=== PATIENT | female | born 1930 | race Caucasian/White ===

== ENCOUNTER 2017-03-30 03:19 | Inpatient (IN) | payer BC, MEDICARE ==
[2017-03-30] MEDS ORDERED: NS 0.9% 1000 ML* 1,000 ML IV ONE (03:57)
[2017-03-30] MEDS ORDERED: Ondansetron INJ* 2 MG/ML VIAL IV ONE (04:00)
[2017-03-30] MEDS ORDERED: Tobramycin 0.3% OPHTH.OINT* 3.5 GM TUBE (OPTH OINTMENT) BOTH EYES ONE (04:00)
[2017-03-30] MEDS: Morphine INJ* 2 MG/ML 1 ML CARPUJECT IV ONE ×2 (04:16→05:58)
[2017-03-30 05:24] LABS: ABS Basophils 0 10^3/ul (0-0.2); ABS Eosinophils 0.1 10^3/ul (0-0.6); ABS Lymphocytes 0.9 10^3/ul (1.0-4.8); ABS Monocytes 0.4 10^3/ul (0-0.8); ABS Nucleated RBC 0 10^3/ul; Eosinophil % 0.9 % (0-6); Hematocrit 42 % (35-47); Hemoglobin 14.2 g/dl (12.0-16.0); Lymphocyte % 9.2 % (25-47); Mean Corpuscular HGB Conc 34 g/dl (31-36); Mean Corpuscular Hemoglobin 30 pg (27-31); Mean Corpuscular Volume 90 fL (80-97); Mean Platelet Volume 9 um3 (7.4-10.4); Nucleated Red Blood Cells % 0; Platelet Count 169 10^3/ul (150-450); Red Blood Count 4.68 10^6/ul (4.0-5.4); Red Cell Distribution Width 14 % (10.5-15); White Blood Count 9.3 10^3/ul (3.5-10.8)
[2017-03-30 05:28] LABS: Urine Appearance Clear; Urine Blood Negative (Negative); Urine Color Yellow; Urine Ketones Trace (Negative); Urine Protein Negative (Negative); Urine Specific Gravity 1.015 (1.010-1.030); Urine Urobilinogen Negative (Negative)
[2017-03-30 05:33] LABS: INR 0.98 (0.77-1.02)
[2017-03-30 05:36] LABS: EGFR Non-African American 80.5 (>60)
[2017-03-30] MEDS ORDERED: Morphine INJ* 2 MG/ML 1 ML CARPUJECT ONE (05:55)
--- NOTE | 2017-03-30 07:07 | ED ---
Hossein Klein Julia, scribed for Luis Harvey MD on 03/30/17 at 0532 . Syncope/Near Syncope - HPI Summary HPI Summary: This patient is a 86 year old F BIBA to [facility] due to a fall on hard floor when walking to the bathroom at 02:00 this morning and hit her L head on the floor. Patient reports L hip pain, R shoulder pain, and LOC. Patient denies cough, neck pain, SOB, and chest pain. The patient rates the pain 5/10 in severity. Pt takes baby ASA every other day. - History Of Current Complaint Chief Complaint: EDSyncope Hx Obtained From: Patient Onset/Duration: Sudden Onset Context: Loss Of Consciousness Activity At Onset: Other - walking to bathroom Associated Head Trauma: Yes Associated Signs And Symptoms: Head Trauma (Remote), Pain - L hip and - Allergies/Home Medications Allergies/Adverse Reactions: Allergies Allergy/AdvReac Type Severity Reaction Status Date / Time No Known Allergies Allergy Verified 03/30/17 03:26 Home Medications: Home Medications C,E,Zinc,Copper 11/Gbbgx6c/Lut [Ocuvite Adult 50 Plus Softgel] 1 cap .ROUTE BID 03/30/17 [History Confirmed 03/30/17] PMH/Surg Hx/FS Hx/Imm Hx Cardiovascular History: Reports: Hx Hypotension Musculoskeletal History: Reports: Hx Orthopedic Injury EENT History: Denies: Hx Deafness Infectious Disease History: No Infectious Disease History: Denies: Traveled Outside the [place] in Last 30 Days - Social History Alcohol Use: None Substance Use Type: Reports: None Smoking Status (MU): Never Smoked Tobacco Review of Systems Positive: Myalgia - L hip, R shoulder Neurological: Other - LOC All Other Systems Reviewed And Are Negative: Yes Physical Exam - Summary Physical Exam Summary: Appearance: Well appearing, no pain distress, orange discoloration to both sides of mouth Skin: warm, dry, reflects adequate perfusion Head/face: 0.5cm L periorbital laceration with dried blood, 3cm hematoma Eyes: EOMI, LIDIA, conjunctiva injection with discharge bilaterally ENT: normal, TM intact with no hematotympania bilaterally, upper dentures, no lower dentures Neck: supple, non-tender Respiratory: CTA, breath sounds present Cardiovascular: RRR, pulses symmetrical Abdomen: non-tender, soft Bowel: present Musculoskeletal: strength/ROM intact, bilateral upper extremity FROM without pain, chronic deformity of L ankle, shortened L leg, pain at greater trochanter with rotation Neuro: normal, sensory motor intact, A&Ox3 Vital Signs On Initial Exam: Initial Vitals Temp Pulse Resp BP Pulse Ox 97.6 F 87 18 170/89 93 03/30/17 03:23 03/30/17 03:23 03/30/17 03:23 03/30/17 03:23 03/30/17 03:23 Procedures - Laceration/Wound Repair 1 Location: head Length, Depth and Shape: 1cm Closure: Keith #__ - 2 Debridement: cleaned with soap and water, tetanus shot given Diagnostics - Vital Signs Vital Signs Temp Pulse Resp BP Pulse Ox 03/30/17 05:02 17 03/30/17 05:01 143/77 03/30/17 04:16 16 03/30/17 04:00 18 168/89 03/30/17 03:34 85 91 03/30/17 03:32 156/87 03/30/17 03:23 97.6 F 87 18 170/89 93 - Laboratory Lab Results: Lab Results 03/30/17 03/30/17 Range/Units 05:00 05:00 WBC 9.3 (3.5-10.8) 10^3/ul RBC 4.68 (4.0-5.4) 10^6/ul Hgb 14.2 (12.0-16.0) g/dl Hct 42 (35-47) % MCV 90 (80-97) fL MCH 30 (27-31) pg MCHC 34 (31-36) g/dl RDW 14 (10.5-15) % Plt Count 169 (150-450) 10^3/ul MPV 9 (7.4-10.4) um3 Neut % (Auto) 85.7 H (38-83) % Lymph % (Auto) 9.2 L (25-47) % [place] % (Auto) 4.0 (1-9) % Eos % (Auto) 0.9 (0-6) % Baso % (Auto) 0.2 (0-2) % Absolute Neuts (auto) 8.0 H (1.5-7.7) 10^3/ul Absolute Lymphs (auto) 0.9 L (1.0-4.8) 10^3/ul Absolute Monos (auto) 0.4 (0-0.8) 10^3/ul Absolute Eos (auto) 0.1 (0-0.6) 10^3/ul Absolute Basos (auto) 0 (0-0.2) 10^3/ul Absolute Nucleated RBC 0 10^3/ul Nucleated RBC % 0 Urine Color Yellow Urine Appearance Clear Urine pH 7.0 (5-9) Ur Specific [place] 1.015 (1.010-1.030) Urine Protein Negative (Negative) Urine Ketones Trace H (Negative) Urine Blood Negative (Negative) Urine Nitrate Negative (Negative) Urine Bilirubin Negative (Negative) Urine Urobilinogen Negative (Negative) Ur Leukocyte Esterase Trace H (Negative) Urine WBC (Auto) 1+(6-10/hpf) H (Absent) Urine RBC (Auto) Absent (Absent) Urine Bacteria Absent (Absent) Urine Yeast Present H (Absent) Urine Glucose Negative (Negative) Urine Ascorbic Acid * H (Negative) Result Diagrams: 03/30/17 05:00 03/30/17 05:00 Lab Statement: Any lab studies that have been ordered have been reviewed, and results considered in the medical decision making process. - Radiology R Shoulder Radiology Interpretation Completed By: ED Physician - negative Pelvis Radiology Interpretation Completed By: ED Physician - dsyruption of the pubic synthesis, questionable acetabular fracture on the left, degenerative changes L Femur Radiology Interpretation Completed By: ED Physician - abnormal appearance of femoral neck questionable acetabular fracture CXR Radiology Interpretation Completed By: ED Physician - elevated R hemidiaphragm, no acute finding - CT Brain CT CT Interpretation Completed By: ED Physician - negative A/P CT Interpretation Completed By: ED Physician - abdominal hernia, anterolisthesis of L5 on S1 C-Spine CT Interpretation Completed By: ED Physician - degenerative pathology - EKG 0323 Cardiac Rate: NL - at 86 BPM EKG Rhythm: Sinus Rhythm EKG Interpretation: low volatage, poor R wave progression, flipped R waves laterally Re-Evaluation - Re-Evaluation First Eval Change: Improved - pt improves with morphine. pain in hip with maniuplation Course/Dx Course Of Treatment: Pt with syncope, no arrhythmia. Head inj with lac. Lac repaired. CT head/neck neg. L hip pain/deformity but limited pelvic xrays. Wanted with confirm with CT. CT shows min impacted fem neck fx. D/W Ortho. He will see in consult. No blood thinners. Shoulder xray neg. Pre-op labs, ECG and CXR performed. Admit thru hospitalist. Pain improved with tx. At 06:56, Dr. Lovell was informed of patient's admission. - Diagnoses Provider Diagnoses: Bilateral conjunctivitis, Head injury, closed, with brief LOC, Syncope, Fracture of femoral neck, left - Physician Notifications Discussed Care of Patient With: Evita Zepeda Time Discussed With Above Provider: 06:54 Instructed by Provider To: Admit As Inpatient - Critical Care Time Critical Care Time: 30-74 min - exclusive of seperately billable procedures Discharge - Discharge Plan Condition: Fair Disposition: ADMITTED TO [facility] The documentation as recorded by the Hossein henson Julia accurately reflects the service I personally performed and the decisions made by , Luis Harvey MD.
[2017-03-30] MEDS ORDERED: Albuterol 2.5 MG/3 ML NEB.SOL* (0.083%) INH PRN (07:36)
[2017-03-30] MEDS ORDERED: Al Hydrox/Mg Hydrox/Simet LIQ* 30 ML UDC PO PRN (07:36)
[2017-03-30] MEDS ORDERED: Acetaminophen TAB* 325 MG PO PRN (07:36)
[2017-03-30] MEDS ORDERED: Enoxaparin(*) 40 MG/0.4 ML SYR SUBCUT SCH (08:00)
--- NOTE | 2017-03-30 08:05 | RAD ---
Indication: Head injury, loss of consciousness. CT of the brain was performed without IV contrast. Ventricular structures are midline. No midline shift is noted. The extra-axial spaces are unremarkable. There is no evidence of intracranial mass or hemorrhage. No other high or low density lesions are identified. Mastoid air cells and paranasal sinuses are otherwise unremarkable. There is a scalp hematoma over the left parietal area consistent with a scalp hematoma and surgical blake. No underlying fracture is noted. IMPRESSION: There is no evidence of intracranial mass or hemorrhage present.
--- NOTE | 2017-03-30 08:06 | RAD ---
Indication: Preop hip fracture. Single view of the chest demonstrates no mediastinal shift. Elevated right hemidiaphragm is noted. Poor inspiratory effort is noted. No alveolar consolidation or pneumothorax is noted. IMPRESSION: Elevated right hemidiaphragm. Poor inspiration. No definite pneumonia is noted.
--- NOTE | 2017-03-30 08:07 | RAD ---
Indication: Left femur injury, left hip fracture. 2 views of the left femur demonstrates fracture of the neck of the left femur with impaction. No other bone or joint abnormality is noted. IMPRESSION: Impacted fracture left femoral neck.
--- NOTE | 2017-03-30 08:08 | RAD ---
Indication: Pelvic injury. Single view of the pelvis demonstrates pelvic ring to be intact. There is a fracture of the left femoral neck. IMPRESSION: Impacted fracture left femoral neck. Pelvic ring is intact.
--- NOTE | 2017-03-30 08:09 | RAD ---
Indication: Right shoulder injury. 4 views of the right shoulder demonstrates AC joint arthritis. Degenerative changes of the glenohumeral joint is noted. No fracture is identified. IMPRESSION: AC joint arthritis. No fracture of the right shoulder is noted.
--- NOTE | 2017-03-30 08:24 | RAD ---
INDICATION: Trauma. COMPARISON: There are no prior studies available for comparison. TECHNIQUE: Contiguous axial sections were obtained from the skull base through the T2 vertebra. Images were reconstructed in the sagittal and coronal planes. FINDINGS: There is mild anterolisthesis of C4 relative to C5 of approximately 2 mm which is likely degenerative in origin. No prevertebral soft tissue swelling or fracture is seen. There is moderate diffuse degenerative disc disease and facet osteoarthritis. No significant spinal canal narrowing is seen. There is moderate bilateral neural foraminal narrowing at multiple levels in the mid and lower cervical spine. There is a dominant nodule in the right thyroid lobe measuring 2.4 x 1.6 cm in size. There is minimal intralobular septal thickening. The lung apices are otherwise clear. IMPRESSION: 1. NO EVIDENCE FOR FRACTURE. 2. RIGHT THYROID LOBE NODULE RECOMMEND A FOLLOW-UP THYROID ULTRASOUND FOR FURTHER EVALUATION.
[2017-03-30] MEDS ORDERED: Magnesium Oxide TAB* 400 MG PO ONE (08:32)
[2017-03-30] MEDS ORDERED: Potassium Chlor TAB* 20 MEQ TAB.ER PO ONE (08:32)
[2017-03-30] MEDS ORDERED: Hydrochlorothiazide TAB* 25 MG PO SCH (09:00)
--- NOTE | 2017-03-30 10:29 | RAD ---
Indication: Pelvic fracture, left hip fracture. CT of the pelvis was obtained in the axial plane. Sagittal and coronal reconstructed images were obtained. The iliac crests bilaterally demonstrate no fracture. The sacrum is otherwise unremarkable. Degenerative changes of the facet joint are noted. The acetabulum demonstrates no evidence of fracture. Superior and inferior pubic rami are grossly unremarkable with osteitis of the pubic symphysis. Again noted is a minimally impacted fracture of the neck of the left femur. There is mild aneurysmal dilatation of the distal abdominal aorta just above the bifurcation measuring up to 3.0 cm x 3.4 cm. Common iliac arteries are unremarkable. There is a large left-sided inguinal hernia containing colon. Additionally, there is a small periumbilical hernia containing fat. IMPRESSION: 1. Mildly impacted fracture of the neck of the left femur. 2. The pelvic ring demonstrates no fracture. Osteitis pubis is noted. Degenerative changes of the lower lumbar spine are noted. 3. There is a large left inguinal hernia containing colon and a small periumbilical hernia containing omentum.
[2017-03-30] MEDS: Morphine INJ* 2 MG/ML 1 ML CARPUJECT IV PRN ×3 (10:30→21:15)
--- NOTE | 2017-03-30 12:20 | HP ---
CC: Dr. Lovell; Dr. Nieto * HISTORY AND PHYSICAL: DATE OF ADMISSION: 03/30/17 TIME OF ADMISSION: 8 a.m. PRIMARY CARE PHYSICIAN: [facility]. CHIEF COMPLAINT: Fall. HISTORY OF PRESENT ILLNESS: This is an 86-year-old female with history of hypertension and macular degeneration, who presents after a fall at home. She woke up at about 2 a.m. and got up to walk to the bathroom. During her walk from the bed to the bathroom, she lost consciousness and fell backwards and to the left. She hit the side of her head and her left hip and in the emergency department was found to have an impacted femoral neck fracture. So, we were called for admission. Ms. Grier reports a history of dizziness for several years and has been diagnosed with vertigo by her PCP; however, says that the dizziness has been persistent, daily, and worsening over the past few years. She has had syncope on exertion 3 times in the past few years. Last night, the episode occurred while she was walking between the bed and the bathroom and she is confident that she lost consciousness. She does not know how long she was unconscious. She does not recall any palpitations or chest pain prior to the syncope. Right now, she has pain in her left hip, but otherwise feels okay. PAST MEDICAL HISTORY: Hypertension, macular degeneration, and osteoarthritis. HOME MEDICATIONS: 1. Ocuvite b.i.d. 2. Aspirin 81 mg every other day. 3. Hydrochlorothiazide 12.5 mg daily. FAMILY HISTORY: She does not know of any medical problems that run in her family. SOCIAL HISTORY: She lives at [facility] in [place], in independent living section. Her daughter lives in [place] and comes to help her regularly. She is a former smoker and smoked for about 50 years and quit in the . She does not drink alcohol. She does report that she holds on to furniture as she walks through the house, but otherwise does not use assistive devices. REVIEW OF SYSTEMS: She denies recent illness with cough, cold, shortness of breath, sore throat, fevers or muscle aches. She denies recent diarrhea. She does report poor appetite and weight loss over the past few months. PHYSICAL EXAMINATION GENERAL: Alert, elderly female, in no distress. She is pleasant, cooperative, and oriented. VITAL SIGNS: Temp 99.1, heart rate 82, respiratory rate 18, pulse ox 97% on 2 L. blood pressure 126/59. HEENT: Pupils are 5 mm bilaterally and reactive to light. She has a 1.5 cm laceration on the left superior parietal area that has [address] She has no nystagmus. Her face is symmetrical. Her mucosa is moist, with no pharyngeal exudates or erythema. NECK: She has JVP to the angle of the mandible. She has no cervical adenopathy. CHEST: She is in a regular rate and rhythm. She has an early systolic murmur, heard best at the left upper sternal border and without radiation. Her PMI is nondisplaced. She is unable to roll on her side to listen posteriorly, but anteriorly her lungs are clear. ABDOMEN: Her abdomen has large seborrheic keratosis on it. It is soft, nontender, nondistended. EXTREMITIES: Her left leg is internally rotated and her medial malleolus is 2 cm superior to the right medial malleolus. She has pain with passive internal and external rotation of the left hip. Her sensation his distally intact. DIAGNOSTIC STUDIES/LAB DATA: White blood cell is 9.3, 86% neutrophils, hemoglobin 14.2, platelets 169. INR 0.98. Sodium 140, potassium 3.4, chloride 105, bicarb 29, BUN 21, creatinine 0.69, magnesium 1.7. Troponin 0.20. Total protein 5.7, total bili is 0.8, ALT 16, AST 18, alk phos 62. EKG: Normal sinus rhythm, with left axis deviation, normal intervals, Q waves in V2 and V3, T-wave inversions in V2 through V6. There is no EKG done in the past for comparison. Chest x-ray: Elevated right hemidiaphragm and some vascular congestion. This is my read, an official read is pending. CT pelvis shows an acute, minimally impacted subcapital fracture in the left femoral neck, with no dislocation and anterolisthesis L5 to S1 due to chronic degenerative changes versus L5 spondylolysis, with degenerative/posttraumatic changes in the pubic symphysis, with a small incidental bone island, left superior pubic ramus. CT of C-spine showed no acute fracture with multilevel spondylosis. CT head: No acute brain parenchymal abnormality. No hemorrhage, mass or acute territorial infarct with age related involutional changes. No skull fracture. ASSESSMENT AND PLAN: This is an 86-year-old female with history of hypertension and macular degeneration, who presents to the ED after syncope during exertion, who was found to have a femoral neck facture. 1. Acute, minimally impacted, subcapital left femoral neck fracture. Orthopedics has been consulted and we will wait to hear from them about an operative plan. If they plan to take her to operating room, a preop risk stratification will follow. Pain control with morphine. 2. Exertional syncope. This is concerning for cardiac etiology and she says this has happened to her several times in the past few years. Her story is not consistent with orthostasis; however, we will check orthostatic vitals, but I am more concerned about a dysrhythmia versus RV/PA dysfunction. She has a murmur that to me is concerning for tricuspid regurgitation. I will start by ordering an echocardiogram and trending her troponin and monitoring her on telemetry. I am consulting Cardiology for this history and appreciate their input. 3. Non-ST elevation myocardial infarction. First troponin is 0.20. I will continue to trend this. My concerns are as above and include a dysrhythmia; however, I cannot rule out type 1 CT given her ischemic changes on EKG without a prior EKG for comparison. I will discuss this with Cardiology and replace her magnesium and potassium. 4. Hypertension. Resume HCTZ. 5. Hypokalemia and hypomagnesemia, may be related to her HCTZ. We will replete now. 6. Disposition. Admit to inpatient medical service, with Cardiology and Orthopedic consult. [id number]/[facility] #: [id number] REYNALDO
--- NOTE | 2017-03-30 13:26 | CONS ---
CONSULTATION REPORT: DATE OF CONSULTATION: 03/30/17 SURGEON AND PROVIDER: Sagar Lovell MD CHIEF COMPLAINT: Left hip pain. HISTORY OF PRESENT ILLNESS: Isabel is an 86-year-old female who was brought in by ambulance last night due to a fall at home while she was up walking to the bathroom. The patient states that she has been dizzy chronically over at least the past few years, which begins every time that she stands up and does not go away while she is walking or while she is moving. She experiences dizziness prior to her falls stating that she was dizzy as she normal is and she fell without warning. She denied having any chest pain, irregular beats or shortness of breath prior to falling. She does feel that she did pass out prior to falling and woke up when she hit the ground. She did hit her head as well. When she fell, she had immediate pain of her left hip and after trying to get up developed right shoulder pain. She feels that she may have strained this area rather than falling directly upon it. Her head was bleeding on the left side after falling. She denies any current headache, vision changes, confusion , shortness of breath, dizziness, or neck pain. She confirms left lower extremity pain. The patient has never had a heart attack or stroke. She does not have diabetes. She has never had a blood clot. She does not bleed easily. She takes a baby aspirin every other day. Her last dose was 2 days ago. She has never had a blood transfusion. She does not have any known history of HIV or hepatitis. The patient does not have a primary care provider though she has seen the [facility] in the past. The patient has had surgery before , she tolerated it well, she had tolerated anesthesia well. Her last p.o. intake was last night. PAST MEDICAL HISTORY: Includes: 1. Hypertension. Denies any history of heart attack. 2. Musculoskeletal history of ankle fracture with surgical correction on the right side. HOME MEDICATIONS: The patient reports: 1. 81 mg of aspirin every other day, last taken 2 days ago. 2. Hydrochlorothiazide, unknown dose. ALLERGIES: No known drug allergies. 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 The patient does not use alcohol. She does not smoke cigarettes. She does not use drugs. REVIEW OF SYSTEMS: General: The patient denies fatigue or chills. Head: The patient confirms laceration to the left side of her head which has been stapled since arriving at the emergency room. Vision: There are no changes in vision. Hearing: No changes in hearing. Cardio: No chest pain. No irregular beats. No history of heart attack. Lungs: No shortness of breath. No cough. GI: No diarrhea, nausea, or vomiting. The patient does have constipation. : Denies urinary burning. Musculoskeletal: Confirms left hip pain and right shoulder pain. Neuro: Denies numbness or tingling of her left lower extremity. Denies confusion. Skin: Laceration of the left side of the head. No other bruising or lacerations. Hematology: Denies history of blood clots. Denies easy bleeding or bruising. PHYSICAL EXAMINATION: Vital Signs: Temperature 98.9, pulse rate 96, respiratory rate 15, oxygen saturation 96%, blood pressure 140/65. General: The patient is well appearing, in no acute distress. Skin: No bruising or open lesions. The left lower extremity had 0.5 cm laceration with 2 blake in the left parietal region. Eyes: Extraocular movements intact. Heart: S1, S2. No audible murmurs. Lungs: Clear to auscultation bilaterally. Abdomen: Bowel sounds normoactive. Soft and nontender. Musculoskeletal: Left lower extremity is rotated slightly inward and slightly shortened. There is no obvious deformity. At the fracture site, the patient has some tenderness posteriorly on the superior aspect of the femur. Range of motion was not attempted due to pain. The patient has mild tenderness over the anterior aspect of the right superior humerus without any severe point tenderness and no gross bony abnormality. Range of motion is nonpainful. Neuro: Sensation intact distally throughout the left lower extremity. The patient is alert and oriented x3. Dorsiflexion and plantarflexion of left lower extremity intact. Sensation intact to light touch throughout the right upper extremity. ASSESSMENT: As seen on pelvis x-ray, impacted fracture left femoral neck with intact pelvic ring. PLAN: The patient will be n.p.o. She will be cleared by Cardiology as recommended by Medicine. When medically optimized, she will be brought to the operating room by Dr. Lovell. She will be n.p.o. . GENESIS GUTIÉRREZ, [place] [id number]/[facility] [place]: [id number] [facility]
--- NOTE | 2017-03-30 14:53 | ECHO ---
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 Technical Comments: The study quality is fair. The study is technically limited due to poor parasternal windows. Completed at 1415. Left Ventricle: The left ventricular chamber size is decreased. Mild concentric left ventricular hypertrophy is observed. There is a focal wall motion abnormality present. There is mild to moderately decreased left ventricular systolic function. The estimated ejection fraction is 35-40%. Abnormal left ventricular diastolic function is observed. There is an E to A reversal in the mitral valve flow pattern suggestive of diastolic dysfunction. The mid anterior, mid anterolateral, mid inferoseptal, apical septal, apical anterior, apical lateral, and apical inferior wall segments are hypokinetic (score 2). Overall wallmotion score index is 2.00 Left Atrium: The left atrial chamber size is normal. Right Ventricle: Moderator Band present. The right ventricle is mildly dilated. The right ventricular global systolic function is normal. Right Atrium: The right atrial cavity size is normal. Aortic Valve: The aortic valve is trileaflet. The aortic valve leaflets are moderately thickened. There is evidence of aortic sclerosis without stenosis. There is moderate aortic regurgitation. There is no evidence of aortic stenosis. Mitral Valve: There is mitral annular calcification. The mitral valve leaflets are moderately thickened. There is a trace of mitral regurgitation. There is no evidence of mitral stenosis. Tricuspid Valve: The tricuspid valve leaflets are normal. There is mild tricuspid regurgitation. The right ventricular systolic pressure is estimated at 28 mmHg. There is no tricuspid stenosis. Pulmonic Valve: The pulmonic valve appears normal. There is trace to mild pulmonic regurgitation. There is no pulmonic stenosis. Pericardium: There is no significant pericardial effusion. Aorta: There is no dilatation of the ascending aorta. There is no dilatation of the aortic arch. The aortic root is normal in size. Pulmonary Artery: The main pulmonary artery is not well visualized. Venous: The inferior vena cava appears normal in size. There is a greater than 50% respiratory change in the inferior vena cava dimension. Summary: There was not any prior study for comparison. Conclusions Mild concentric left ventricular hypertrophy is observed. There is mild to moderately decreased left ventricular systolic function. The estimated ejection fraction is 35-40%. Consistant with Takasubo's or broken heart syndrome The mid anterior, mid anterolateral, mid inferoseptal, apical septal, apical anterior, apical lateral, and apical inferior wall segments are hypokinetic (score 2). The right ventricular global systolic function is normal. There is moderate aortic regurgitation. There is a trace of mitral regurgitation. There is mild tricuspid regurgitation. The right ventricular systolic pressure is estimated at 28 mmHg. There is no significant pericardial effusion. Measurements Name Value Normal Range RVIDd (AP) 2D 2.6 cm (0.9 - 2.6) RVDdMajor (2D) 4.5 cm (2.2 - 4.4) RAd ISD 4CH 3.3 cm (3.4 - 4.9) RA (A4C)W 3.5 cm (2.9 - 4.6) IVSd (2D) 1.1 cm (0.6 - 1) LVPWd (2D) 1.1 cm (0.6 - 1) LVIDd (2D) 3.5 cm (3.6 - 5.4) LVIDs (2D) 2.3 cm - LV FS (2D) 33 % (25 - 45) Aortic Annulus 1.9 cm (1.4 - 2.6) Ao root diameter (2D) 3 cm (2.1 - 3.5) Ascending Ao 2.9 cm (2.1 - 3.4) Aortic arch 2.3 cm (1.8 - 3.4) LA dimension (AP) 2D 2.8 cm (2.3 - 3.8) LAd ISD 4CH 4.7 cm (2.9 - 5.3) LA ISD 4CH W 4.2 cm (2.5 - 4.5) Name Value Normal Range LA ESV SP 4CH (A/L) 42 ml - LA ESV SP 2CH (A/L) 49 ml - LA ESV BP (A/L) 47 ml - LA ESV BP (A/L) index 29 ml/m2 - LA ESV SP 4CH (MOD) 41 ml - LA ESV SP 2CH (MOD) 46 ml - Name Value Normal Range MV E-wave Vmax 0.37 m/sec - MV deceleration time 167.7 msec - MV A-wave Vmax 1 m/sec - MV E:A ratio 0.35 ratio - LV septal e' Vmax 0.03 m/sec - LV lateral e' Vmax 0.06 m/sec - LV E:e' septal ratio 12.33 ratio - LV E:e' lateral ratio 6.17 ratio - Name Value Normal Range AV Vmax 0.94 m/sec - AV VTI 19.06 cm - AV peak gradient 3.57 mmHg - AV mean gradient 2.19 mmHg - LVOT Vmax 0.82 m/sec - LVOT VTI 15.25 cm - LVOT peak gradient 2.75 mmHg - LVOT mean gradient 1.74 mmHg - AR PHT 307 msec - AR peak gradient 41.35 mmHg - ANSELMO Vmax 0.52 m/sec - Name Value Normal Range TR Vmax 2.5 m/sec - TR peak gradient 25 mmHg - RAP 3 mmHg - RVSP 28 mmHg - IVC diameter 1.8 cm - Name Value Normal Range PV Vmax 0.78 m/sec - PV peak gradient 2.46 mmHg - AR end-diastolic Vmax 1.25 m/sec - RVOT diameter 0 cm - Wallmotion BAS Not Seen BA Not Seen BAL Not Seen TIMOTHY Not Seen BI Not Seen BIS Not Seen MAS Not Seen MA Hypokinetic MAL Hypokinetic MIL Not Seen WV Not Seen MIS Hypokinetic Hypokinetic AA Hypokinetic AL Hypokinetic AI Hypokinetic APEX Akinetic
[2017-03-30] MEDS ORDERED: Aspirin TAB* 325 MG PO ONE (18:02)
[2017-03-30] MEDS: Polyethylene Glycol 3350* 17 GM PACKET PO PRN (18:15)
[2017-03-30] MEDS: Metoprolol Tartrate TAB* 25 MG PO SCH (19:39)
--- NOTE | 2017-03-30 22:25 | CONS ---
CARDIOLOGY CONSULTATION: DATE OF CONSULT: 03/30/17 INDICATION FOR CONSULT: Abnormal EKG, syncopal episode. HISTORY OF PRESENT ILLNESS: The patient is an 86-year-old female with history of hypertension, macular degeneration, who came to the emergency room because of a femur fracture. The patient states that she got up in the middle of the night to go to the bathroom and she fell, hit her head and fractured her left hip. The patient states that she got dizzy just before this event and thinks she had a syncopal episode. The patient denied any chest pain. She denied any palpitations. In the emergency room, the patient had an EKG, which demonstrated T-wave inversions in the lateral leads. The patient was admitted to the hospital with femur fracture. PAST MEDICAL HISTORY: Significant for hypertension, macular degeneration. OUTPATIENT MEDICATIONS: 1. Aspirin 81 mg a day. 2. Hydrochlorothiazide 12.5 mg a day. FAMILY HISTORY: Noncontributory. SOCIAL HISTORY: The patient lives in an independent living section in [place]. Her daughter checks on her regularly. She is a previous smoker. She quit in 1979. No alcohol intake. PHYSICAL EXAM: Height is 5 feet 3 inches, weight is 126 pounds, temperature 98.6, heart rate is 90, blood pressure 121/70, respiratory rate 18, oxygen saturation 94% on room air. Sclerae anicteric. Oropharynx is pink without erythema. Carotids are 2+ without bruits. JVD is normal. Thyroid is normal. Cardiac Exam: S1 and S2 without any murmurs, rubs, or gallops. PMI is normal. Lungs are clear to auscultation anteriorly. It is difficult to listen posteriorly as she could not sit up because of her femur fracture. Abdomen is soft, nontender, nondistended with normoactive bowel sounds. Extremities show minimal edema. The patient is awake and alert. She moves her upper extremities equally. DIAGNOSTIC STUDIES/LAB DATA: CBC within normal limits. Chemistries within normal limits. BUN 21, creatinine 0.7. Troponin level: Initial troponin 0.2, second troponin 0.6, third troponin 0.8. AST and ALT are within normal limits. TSH 2.28. The patient did get an echocardiogram today, which showed severe hypokinesis of her apex and her anterior, inferior, and lateral apical wall is consistent with takotsubo cardiomyopathy. There are no significant valvular abnormalities. IMPRESSION AND PLAN: This is an 86-year-old female, who was admitted to the hospital with a fall at home resulting in her hip fracture. The patient's presentation seems consistent with takotsubo's with minimally elevated troponin level, but large focal wall motion abnormalities on her echocardiogram. There are no significant valvular abnormalities. For now, my recommendation is to place the patient on treatment for cardiomyopathy. The patient should be on beta blockers, HUBER inhibitors, diuretics as necessary. The patient will continue on an aspirin a day. The patient will likely need a cardiac catheterization before going to the operating room for her femur fracture. This case was discussed with Dr. Zepeda. [id number]/[facility] #: [id number] REYNALDO
[2017-03-31 03:01] LABS: ABS Basophils 0.1 10^3/ul (0-0.2); ABS Eosinophils 0.3 10^3/ul (0-0.6); ABS Lymphocytes 0.9 10^3/ul (1.0-4.8); ABS Monocytes 0.5 10^3/ul (0-0.8); ABS Neutrophils 7.3 10^3/ul (1.5-7.7); ABS Nucleated RBC 0 10^3/ul; Eosinophil % 3.3 % (0-6); Hematocrit 40 % (35-47); Hemoglobin 13.3 g/dl (12.0-16.0); Mean Corpuscular HGB Conc 33 g/dl (31-36); Mean Corpuscular Hemoglobin 30 pg (27-31); Mean Corpuscular Volume 90 fL (80-97); Mean Platelet Volume 9 um3 (7.4-10.4); Nucleated Red Blood Cells % 0; Platelet Count 172 10^3/ul (150-450); Red Blood Count 4.41 10^6/ul (4.0-5.4); Red Cell Distribution Width 14 % (10.5-15); White Blood Count 9.1 10^3/ul (3.5-10.8)
[2017-03-31 03:13] LABS: EGFR Non-African American 86.2 (>60)
[2017-03-31] MEDS: Metoprolol Tartrate TAB* 25 MG PO SCH ×3 (03:30→19:55)
[2017-03-31] MEDS: Morphine INJ* 2 MG/ML 1 ML CARPUJECT IV PRN ×3 (03:42→19:50)
[2017-03-31] MEDS ORDERED: NS 0.9% 1000 ML* 1,000 ML IV SCH ×2 (07:00→13:30)
--- NOTE | 2017-03-31 07:38 | PN ---
Subjective Date of Service: 03/31/17 Interval History: No overnight events; feels okay this morning just uncomfortable in bed. Pain is controlled on morphine. She continues to deny chest pain, shortness of breath, cough, headache. Family History: Unchanged from Admission Social History: Unchanged from Admission Past Medical History: Unchanged from Admission Objective Active Medications: Acetaminophen (Tylenol Tab*) 650 mg PO Q4H PRN PRN Reason: FEVER/PAIN Al Hydrox/Mg Hydrox/Simethicone (Maalox Plus*) 30 ml PO Q6H PRN PRN Reason: INDIGESTION Albuterol (Ventolin 2.5 Mg/3 Ml Neb.Mira*) 2.5 mg INH [id number] AWAKE PRN PRN Reason: sob/wheezing Aspirin (Aspirin Low Dose Tab*) 81 mg PO DAILY YEMI Hydrochlorothiazide (Hydrodiuril Tab*) 12.5 mg PO DAILY [facility] Last Admin: 03/30/17 10:30 Dose: 12.5 mg Metoprolol Tartrate (Lopressor Tab*) 25 mg PO Q8H [facility] Last Admin: 03/31/17 03:30 Dose: 25 mg Morphine Sulfate (Morphine Inj (Syringe)*) 2 mg IV Q4H PRN PRN Reason: PAIN - MILD Last Admin: 03/31/17 03:42 Dose: 2 mg Polyethylene Glycol/Electrolytes (Miralax*) 17 gm PO DAILY PRN PRN Reason: CONSTIPATION Last Admin: 03/30/17 18:15 Dose: 17 gm Vital Signs - 8 hr 03/30/17 03/31/17 03/31/17 23:38 03:33 03:42 Temperature 97.8 F 98.4 F Pulse Rate 69 69 Respiratory 18 16 16 Rate Blood Pressure 105/47 109/44 (mmHg) O2 Sat by Pulse 95 97 Oximetry Oxygen Devices in Use Now: Nasal Cannula Appearance: alert, well appearing, nontoxic Eyes: - - inferior eyelid injection Ears/Nose/Mouth/Throat: NL Teeth, Lips, Gums Neck: - - JVP 12cm Respiratory: Symmetrical Chest Expansion and Respiratory Effort, - - clear anteriorly Cardiovascular: RRR, - - early systolic murmur LUSB Abdominal: NL Sounds; No Tenderness; No Distention, - - seborrheic keratosis Lymphatic: No Cervical Adenopathy Extremities: No Edema, - - left leg shortened and internally rotated, DP/PT pulses 2+, warm feet Neurological: Alert and Oriented x 3 Result Diagrams: 03/31/17 02:46 03/31/17 02:46 Additional Lab and Data: Lab Results 03/30/17 03/30/17 Range/Units 05:00 05:00 WBC 9.3 (3.5-10.8) 10^3/ul RBC 4.68 (4.0-5.4) 10^6/ul Hgb 14.2 (12.0-16.0) g/dl Hct 42 (35-47) % MCV 90 (80-97) fL MCH 30 (27-31) pg MCHC 34 (31-36) g/dl RDW 14 (10.5-15) % Plt Count 169 (150-450) 10^3/ul MPV 9 (7.4-10.4) um3 Neut % (Auto) 85.7 H (38-83) % Lymph % (Auto) 9.2 L (25-47) % [place] % (Auto) 4.0 (1-9) % Eos % (Auto) 0.9 (0-6) % Baso % (Auto) 0.2 (0-2) % Absolute Neuts (auto) 8.0 H (1.5-7.7) 10^3/ul Absolute Lymphs (auto) 0.9 L (1.0-4.8) 10^3/ul Absolute Monos (auto) 0.4 (0-0.8) 10^3/ul Absolute Eos (auto) 0.1 (0-0.6) 10^3/ul Absolute Basos (auto) 0 (0-0.2) 10^3/ul Absolute Nucleated RBC 0 10^3/ul Nucleated RBC % 0 Urine Color Yellow Urine Appearance Clear Urine pH 7.0 (5-9) Ur Specific [place] 1.015 (1.010-1.030) Urine Protein Negative (Negative) Urine Ketones Trace H (Negative) Urine Blood Negative (Negative) Urine Nitrate Negative (Negative) Urine Bilirubin Negative (Negative) Urine Urobilinogen Negative (Negative) Ur Leukocyte Esterase Trace H (Negative) Urine WBC (Auto) 1+(6-10/hpf) H (Absent) Urine RBC (Auto) Absent (Absent) Urine Bacteria Absent (Absent) Urine Yeast Present H (Absent) Urine Glucose Negative (Negative) Urine Ascorbic Acid * H (Negative) Assess/Plan/Problems-Billing Assessment: 86 yo female with history of htn and macular degeneration admitted after syncope at home, found to have a left femoral neck fracture and nstemi, now with findings consistent with Takotsubo's cardiomyopathy. - Patient Problems (1) Fracture of femoral neck, left Current Visit: Yes Status: Acute Code(s): S72.002A - FRACTURE OF UNSP PART OF NECK OF LEFT FEMUR, INIT SNOMED Code(s): 3892238 Comment: pain control with morphine DVT ppx with lovenox plan for OR with ortho (okay for dual antiplatelets per ortho) after further cardiac work up (2) Takotsubo cardiomyopathy Current Visit: Yes Status: Acute Code(s): I51.81 - TAKOTSUBO SYNDROME SNOMED Code(s): 598258932 Comment: TTE findings suggesting of takotsubo, likely related to fall [facility] planned for today to rule out coronary disease accounting for diffuse hypokinesis metoprolol added yesterday; today I am switching hctz for lisinopril euvolemic today (3) Syncope and collapse Current Visit: Yes Status: Acute Code(s): R55 - SYNCOPE AND COLLAPSE SNOMED Code(s): 444026451 Comment: suspicious for cardiac etiology; no events on telemetry, continue to monitor carotid dopplers pending cannot check orthostatics given hip fracture, but history not consistent with orthostasis no valvular disease on TTE (4) NSTEMI (non-ST elevated myocardial infarction) Current Visit: Yes Status: Acute Code(s): I21.4 - NON-ST ELEVATION (NSTEMI) MYOCARDIAL INFARCTION SNOMED Code(s): 374169005 Comment: most likely related to takotsubo's cardiomyopathy will follow up results of [facility] today Status and Disposition: inpatient, for [facility] today, followed by OR with ortho for left hip fracture; will likely need PT/STR afterwards.
[2017-03-31] MEDS: Lisinopril TAB* 5 MG PO SCH (09:07)
[2017-03-31] MEDS: Aspirin Low Dose CHEW TAB* 81 MG PO SCH (09:07)
[2017-03-31] MEDS: Enoxaparin(*) 40 MG/0.4 ML SYR SUBCUT SCH (09:08)
--- NOTE | 2017-03-31 09:40 | PN ---
Progress Note - Progress Note Date of Service: 03/31/17 SOAP: Subjective: []Patient seen at bedside. Her LLE is painful only with movement. She will undergo further cardiac workup today due to takatsubo on echo. Objective: [] Vital Signs Temp 98.3 F 03/31/17 11:23 Pulse 70 03/31/17 11:23 Resp 20 03/31/17 11:23 BP 110/46 03/31/17 11:23 Pulse Ox 96 03/31/17 11:23 Intake & Output 03/30/17 03/31/17 03/31/17 18:59 06:59 18:59 Intake Total 200 0 0 Output Total 350 75 300 Balance -150 -75 -300 Weight 126 lb 9.6 oz Intake: Oral 200 0 0 Output: Urine 0 300 Marsh 350 75 Other: # Bowel Movements 0 Laboratory Last Values WBC 9.1 10^3/ul (3.5-10.8) 03/31/17 02:46 RBC 4.41 10^6/ul (4.0-5.4) 03/31/17 02:46 Hgb 13.3 g/dl (12.0-16.0) 03/31/17 02:46 Hct 40 % (35-47) 03/31/17 02:46 MCV 90 fL (80-97) 03/31/17 02:46 MCH 30 pg (27-31) 03/31/17 02:46 MCHC 33 g/dl (31-36) 03/31/17 02:46 RDW 14 % (10.5-15) 03/31/17 02:46 Plt Count 172 10^3/ul (150-450) 03/31/17 02:46 MPV 9 um3 (7.4-10.4) 03/31/17 02:46 Neut % (Auto) 80.3 % (38-83) 03/31/17 02:46 Lymph % (Auto) 10.0 % (25-47) L 03/31/17 02:46 [place] % (Auto) 5.8 % (1-9) 03/31/17 02:46 Eos % (Auto) 3.3 % (0-6) 03/31/17 02:46 Baso % (Auto) 0.6 % (0-2) 03/31/17 02:46 Absolute Neuts (auto) 7.3 10^3/ul (1.5-7.7) 03/31/17 02:46 Absolute Lymphs (auto) 0.9 10^3/ul (1.0-4.8) L 03/31/17 02:46 Absolute Monos (auto) 0.5 10^3/ul (0-0.8) 03/31/17 02:46 Absolute Eos (auto) 0.3 10^3/ul (0-0.6) 03/31/17 02:46 Absolute Basos (auto) 0.1 10^3/ul (0-0.2) 03/31/17 02:46 Absolute Nucleated RBC 0 10^3/ul 03/31/17 02:46 Nucleated RBC % 0 03/31/17 02:46 INR (Anticoag Therapy) 0.98 (0.77-1.02) 03/30/17 05:00 APTT 29.5 seconds (26.0-36.3) 03/30/17 05:00 Sodium 138 mmol/L (133-145) 03/31/17 02:46 Potassium 4.1 mmol/L (3.5-5.0) 03/31/17 02:46 Chloride 105 mmol/L (101-111) 03/31/17 02:46 Carbon Dioxide 29 mmol/L (22-32) 03/31/17 02:46 Anion Gap 4 mmol/L (2-11) 03/31/17 02:46 BUN 18 mg/dL (6-24) 03/31/17 02:46 Creatinine 0.65 mg/dL (0.51-0.95) 03/31/17 02:46 Est GFR ( Amer) 110.9 (>60) 03/31/17 02:46 Est GFR (Non-Af Amer) 86.2 (>60) 03/31/17 02:46 BUN/Creatinine Ratio 27.7 (8-20) H 03/31/17 02:46 Glucose 123 mg/dL (70-100) H 03/31/17 02:46 Lactic Acid 1.2 mmol/L (0.5-2.0) 03/30/17 05:00 Calcium 8.9 mg/dL (8.6-10.3) 03/31/17 02:46 Magnesium 1.7 mg/dL (1.9-2.7) L 03/30/17 05:00 Total Bilirubin 0.80 mg/dL (0.2-1.0) 03/30/17 05:00 AST 18 U/L (13-39) 03/30/17 05:00 ALT 16 U/L (7-52) 03/30/17 05:00 Alkaline Phosphatase 62 U/L (34-104) 03/30/17 05:00 Troponin I 0.47 ng/mL (<0.04) H* 03/31/17 07:52 B-Natriuretic Peptide 292 pg/mL (-100) H 03/30/17 05:00 Total Protein 5.7 g/dL (6.4-8.9) L 03/30/17 05:00 Albumin 3.4 g/dL (3.2-5.2) 03/30/17 05:00 Globulin 2.3 g/dL (2-4) 03/30/17 05:00 Albumin/Globulin Ratio 1.5 (1-3) 03/30/17 05:00 Triglycerides 153 mg/dL 03/30/17 05:00 Cholesterol 166 mg/dL 03/30/17 05:00 LDL Cholesterol 93 mg/dL 03/30/17 05:00 HDL Cholesterol 42.6 mg/dL 03/30/17 05:00 TSH 2.28 mcIU/mL (0.34-5.60) 03/30/17 05:00 Urine Color Yellow 03/30/17 05:00 Urine Appearance Clear 03/30/17 05:00 Urine pH 7.0 (5-9) 03/30/17 05:00 Ur Specific [place] 1.015 (1.010-1.030) 03/30/17 05:00 Urine Protein Negative (Negative) 03/30/17 05:00 Urine Ketones Trace (Negative) H 03/30/17 05:00 Urine Blood Negative (Negative) 03/30/17 05:00 Urine Nitrate Negative (Negative) 03/30/17 05:00 Urine Bilirubin Negative (Negative) 03/30/17 05:00 Urine Urobilinogen Negative (Negative) 03/30/17 05:00 Ur Leukocyte Esterase Trace (Negative) H 03/30/17 05:00 Urine WBC (Auto) 1+(6-10/hpf) (Absent) H 03/30/17 05:00 Urine RBC (Auto) Absent (Absent) 03/30/17 05:00 Urine Bacteria Absent (Absent) 03/30/17 05:00 Urine Yeast Present (Absent) H 03/30/17 05:00 Urine Glucose Negative (Negative) 03/30/17 05:00 Urine Ascorbic Acid * (Negative) H 03/30/17 05:00 Influenza A (Rapid) Negative (Negative) 03/30/17 05:21 Influenza B (Rapid) Negative (Negative) 03/30/17 05:21 Blood Type O Positive 03/30/17 05:00 Antibody Screen Negative 03/30/17 05:00 General: Patient appears very fatigued. No acute distress LLE: Internally rotated and shortened. DF/PF intact. 2+ DP pulse. Sensation intact distally. BL LE: Calves supple and nontender without erythema, edema or palpable cords Assessment: []left femoral neck fracture Plan: []Once medically optimized will proceed to OR for percutaneous pinning <Mayi Mares - Last Filed: 03/31/17 14:21> - Progress Note SOAP: Addendum I spoke with her that once the cardiac status is settled, we would do a percutaneous pinning. If the heart had an episode of take subo, then there will be no stenting and all anesthesia option will be available. But if a stent does get placed, then the ASA and other platelet med will prevent her from getting spina anesthesia. The procedure couldbe done under local/MAC or general, and the platelet inhibitor will not affect the pinning that I need to do. Will await the results of the cath and she is added to the schedule for tomorrow after 1 when I am available. <Sagar Lovell - Last Filed: 04/01/17 15:46>
--- NOTE | 2017-03-31 10:38 | RAD ---
Indication: Left carotid and subclavian artery bruit. Duplex Doppler sonography of the carotid arteries was performed. Right common carotid artery demonstrates intimal wall thickening with plaque extending into the bulb and right internal carotid artery. Peak systolic velocity of the distal right common carotid artery is 104 cm/s. Peak systolic velocity of the proximal right internal carotid artery is 133 cm/s. ICA/CC ratio is 1.28. Right vertebral artery demonstrates antegrade flow. The left common carotid artery demonstrates intimal wall thickening with plaque in the carotid bulb extending into the left internal carotid artery. Peak systolic velocity of the distal left common carotid artery 67 cm/s. Peak systolic velocity of the proximal left internal carotid artery is 262 cm/s. The ICA/CC ratio 3.91. Left vertebral artery demonstrates antegrade flow. Incidentally noted are multiple right-sided thyroid nodules. IMPRESSION: Less than 50% stenosis of the right internal carotid artery. Greater than 70% stenosis of left internal carotid artery. Incidentally noted are multiple right-sided thyroid nodules.
[2017-03-31] MEDS ORDERED: Heparin(*) 1000 UNIT/ML 10 ML VIAL CATH LAB IV ONE (11:49)
[2017-03-31] MEDS ORDERED: fentaNYL* 50 MCG/ML 2 ML VIAL (100 MCG VIAL) ONE ×2 (11:49→11:52)
[2017-03-31] MEDS ORDERED: Lidocaine 1% INJ* 10 MG/ML 30 ML SDV ONE (11:50)
[2017-03-31] MEDS ORDERED: Iohexol 350 (CONTRAST) 200 ML MDV IV ONE (11:50)
[2017-03-31] MEDS ORDERED: Heparin 2 UNITS/ML IVPREMIX* 3,000 ML IV ONE (11:50)
[2017-03-31] MEDS ORDERED: nitroGLYCERIN DRIP* 25,000 MCG/250 ML BTL ONE (11:50)
[2017-03-31] MEDS ORDERED: Midazolam* 1 MG/ML 10 ML VIAL (10 MG) ONE (11:52)
[2017-03-31] MEDS ORDERED: VERAPAMIL 2.5 MG/ML 2 ML VIAL ** 5 mg/2 ml ONE (12:04)
[2017-04-01] MEDS: Morphine INJ* 2 MG/ML 1 ML CARPUJECT IV PRN ×4 (00:32→15:36)
[2017-04-01] MEDS: Metoprolol Tartrate TAB* 25 MG PO SCH ×2 (03:46→11:08)
[2017-04-01 06:33] LABS: ABS Basophils 0 10^3/ul (0-0.2); ABS Eosinophils 0.4 10^3/ul (0-0.6); ABS Lymphocytes 0.9 10^3/ul (1.0-4.8); ABS Monocytes 0.5 10^3/ul (0-0.8); ABS Neutrophils 7.2 10^3/ul (1.5-7.7); ABS Nucleated RBC 0 10^3/ul; Eosinophil % 4.4 % (0-6); Hematocrit 40 % (35-47); Hemoglobin 13.5 g/dl (12.0-16.0); Lymphocyte % 9.5 % (25-47); Mean Corpuscular HGB Conc 34 g/dl (31-36); Mean Corpuscular Hemoglobin 31 pg (27-31); Mean Corpuscular Volume 91 fL (80-97); Mean Platelet Volume 9 um3 (7.4-10.4); Nucleated Red Blood Cells % 0; Platelet Count 153 10^3/ul (150-450); Red Blood Count 4.42 10^6/ul (4.0-5.4); Red Cell Distribution Width 14 % (10.5-15)
[2017-04-01 06:44] LABS: INR 1.06 (0.77-1.02)
[2017-04-01 06:46] LABS: EGFR Non-African American 91.1 (>60)
[2017-04-01] MEDS: Lisinopril TAB* 5 MG PO SCH (08:40)
[2017-04-01] MEDS: Enoxaparin(*) 40 MG/0.4 ML SYR SUBCUT SCH (08:40)
[2017-04-01] MEDS: Aspirin Low Dose CHEW TAB* 81 MG PO SCH (08:40)
[2017-04-01] MEDS: Polyethylene Glycol 3350* 17 GM PACKET PO PRN (08:41)
[2017-04-01] MEDS ORDERED: Docusate CAP* 100 MG PO PRN (09:04)
--- NOTE | 2017-04-01 09:49 | PN ---
Progress Note - Progress Note Date of Service: 04/01/17 SOAP: Subjective: []Patient seen at bedside. She has no LLE pain at this time. Objective: [] General: Patient appears very fatigued. No acute distress LLE: Internally rotated and shortened. DF/PF intact. 2+ DP pulse. Warm left foot. Sensation intact distally. BL LE: Calves supple and nontender without erythema, edema or palpable cords Vital Signs Temp 98.3 F 04/01/17 07:39 Pulse 66 04/01/17 07:39 Resp 14 04/01/17 08:40 BP 132/48 04/01/17 07:39 Pulse Ox 99 04/01/17 07:39 Intake & Output 03/31/17 04/01/17 04/01/17 18:59 06:59 18:59 Intake Total 0 1000 120 Output Total 300 410 Balance -300 590 120 Intake: IV Fluids 1000 NS (0.9%) 1000 Oral 0 0 120 Output: Urine 300 Marsh 410 Other: Date of Last Bowel unknown Movement Laboratory Last Values WBC 9.0 10^3/ul (3.5-10.8) 04/01/17 06:12 RBC 4.42 10^6/ul (4.0-5.4) 04/01/17 06:12 Hgb 13.5 g/dl (12.0-16.0) 04/01/17 06:12 Hct 40 % (35-47) 04/01/17 06:12 MCV 91 fL (80-97) 04/01/17 06:12 MCH 31 pg (27-31) 04/01/17 06:12 MCHC 34 g/dl (31-36) 04/01/17 06:12 RDW 14 % (10.5-15) 04/01/17 06:12 Plt Count 153 10^3/ul (150-450) 04/01/17 06:12 MPV 9 um3 (7.4-10.4) 04/01/17 06:12 Neut % (Auto) 79.9 % (38-83) 04/01/17 06:12 Lymph % (Auto) 9.5 % (25-47) L 04/01/17 06:12 [place] % (Auto) 5.9 % (1-9) 04/01/17 06:12 Eos % (Auto) 4.4 % (0-6) 04/01/17 06:12 Baso % (Auto) 0.3 % (0-2) 04/01/17 06:12 Absolute Neuts (auto) 7.2 10^3/ul (1.5-7.7) 04/01/17 06:12 Absolute Lymphs (auto) 0.9 10^3/ul (1.0-4.8) L 04/01/17 06:12 Absolute Monos (auto) 0.5 10^3/ul (0-0.8) 04/01/17 06:12 Absolute Eos (auto) 0.4 10^3/ul (0-0.6) 04/01/17 06:12 Absolute Basos (auto) 0 10^3/ul (0-0.2) 04/01/17 06:12 Absolute Nucleated RBC 0 10^3/ul 04/01/17 06:12 Nucleated RBC % 0 04/01/17 06:12 INR (Anticoag Therapy) 1.06 (0.77-1.02) H 04/01/17 06:12 APTT 29.5 seconds (26.0-36.3) 03/30/17 05:00 Sodium 139 mmol/L (133-145) 04/01/17 06:12 Potassium 4.3 mmol/L (3.5-5.0) 04/01/17 06:12 Chloride 103 mmol/L (101-111) 04/01/17 06:12 Carbon Dioxide 30 mmol/L (22-32) 04/01/17 06:12 Anion Gap 6 mmol/L (2-11) 04/01/17 06:12 BUN 19 mg/dL (6-24) 04/01/17 06:12 Creatinine 0.62 mg/dL (0.51-0.95) 04/01/17 06:12 Est GFR ( Amer) 117.1 (>60) 04/01/17 06:12 Est GFR (Non-Af Amer) 91.1 (>60) 04/01/17 06:12 BUN/Creatinine Ratio 30.6 (8-20) H 04/01/17 06:12 Glucose 108 mg/dL (70-100) H 04/01/17 06:12 Lactic Acid 1.2 mmol/L (0.5-2.0) 03/30/17 05:00 Calcium 9.1 mg/dL (8.6-10.3) 04/01/17 06:12 Magnesium 1.7 mg/dL (1.9-2.7) L 03/30/17 05:00 Total Bilirubin 0.80 mg/dL (0.2-1.0) 03/30/17 05:00 AST 18 U/L (13-39) 03/30/17 05:00 ALT 16 U/L (7-52) 03/30/17 05:00 Alkaline Phosphatase 62 U/L (34-104) 03/30/17 05:00 Troponin I 0.47 ng/mL (<0.04) H* 03/31/17 07:52 B-Natriuretic Peptide 292 pg/mL (-100) H 03/30/17 05:00 Total Protein 5.7 g/dL (6.4-8.9) L 03/30/17 05:00 Albumin 3.4 g/dL (3.2-5.2) 03/30/17 05:00 Globulin 2.3 g/dL (2-4) 03/30/17 05:00 Albumin/Globulin Ratio 1.5 (1-3) 03/30/17 05:00 Triglycerides 153 mg/dL 03/30/17 05:00 Cholesterol 166 mg/dL 03/30/17 05:00 LDL Cholesterol 93 mg/dL 03/30/17 05:00 HDL Cholesterol 42.6 mg/dL 03/30/17 05:00 TSH 2.28 mcIU/mL (0.34-5.60) 03/30/17 05:00 Urine Color Yellow 03/30/17 05:00 Urine Appearance Clear 03/30/17 05:00 Urine pH 7.0 (5-9) 03/30/17 05:00 Ur Specific Haslett 1.015 (1.010-1.030) 03/30/17 05:00 Urine Protein Negative (Negative) 03/30/17 05:00 Urine Ketones Trace (Negative) H 03/30/17 05:00 Urine Blood Negative (Negative) 03/30/17 05:00 Urine Nitrate Negative (Negative) 03/30/17 05:00 Urine Bilirubin Negative (Negative) 03/30/17 05:00 Urine Urobilinogen Negative (Negative) 03/30/17 05:00 Ur Leukocyte Esterase Trace (Negative) H 03/30/17 05:00 Urine WBC (Auto) 1+(6-10/hpf) (Absent) H 03/30/17 05:00 Urine RBC (Auto) Absent (Absent) 03/30/17 05:00 Urine Bacteria Absent (Absent) 03/30/17 05:00 Urine Yeast Present (Absent) H 03/30/17 05:00 Urine Glucose Negative (Negative) 03/30/17 05:00 Urine Ascorbic Acid * (Negative) H 03/30/17 05:00 Influenza A (Rapid) Negative (Negative) 03/30/17 05:21 Influenza B (Rapid) Negative (Negative) 03/30/17 05:21 Blood Type O Positive 03/30/17 05:00 Antibody Screen Negative 03/30/17 05:00 Assessment: []left femoral neck fracture Plan: []Requires transfer for CABG. Hip pinning likely at facility patient is transferred to for cardiac procedure
--- NOTE | 2017-04-01 11:59 | RAD ---
Indication: Evaluate for vascular access of the lower extremities. Duplex Doppler sonography of the lower extremities was performed bilaterally. The right common iliac artery is patent. Peak systolic velocity ranges from 90 to 117 cm/s in its proximal and midportion. The external iliac artery appears patent with a peak systolic velocity of 168 cm/s. Right common femoral artery is patent with peak systolic velocity of 93 cm/s. The right proximal deep femoral artery is also patent with a peak systolic velocity of 144 cm/s. There is occlusion of the right femoral artery just distal to the bifurcation of the common femoral artery there is reconstitution of the right distal popliteal artery. Left common iliac artery is patent with a peak systolic velocity of 161 cm in its proximal portion and 103 cm/s in its distal portion. The left external iliac artery is patent with a peak systolic velocity of 102 cm/s. The left common femoral artery demonstrates a peak systolic velocity of 74 cm/s. Left proximal deep femoral artery demonstrates a peak systolic velocity of 228 cm/s. The femoral artery demonstrates a peak systolic velocity of 93 cm/s. IMPRESSION: PATENT COMMON ILIAC ARTERY, EXTERNAL ILIAC ARTERY AND COMMON FEMORAL ARTERY BILATERALLY. THE RIGHT FEMORAL ARTERY IS OCCLUDED JUST DISTAL TO THE BIFURCATION OF THE COMMON FEMORAL ARTERY WITH RECONSTITUTION OF THE DISTAL RIGHT POPLITEAL ARTERY.
--- NOTE | 2017-04-01 12:16 | CATH ---
CC: [facility]; Dr. Ashraf CATH REPORT: DATE OF PROCEDURE: 03/31/17 PRIMARY CARE PHYSICIAN: [facility]. MUSEUM DIRECTOR: Dr. Ashraf. PROCEDURE: Right radial artery access, bilateral selective coronary cineangiography. HISTORY: An 86-year-old independent woman with left hip fracture and associated anterior non-ST elev ation infarct with extensive anteroapical wall motion abnormality. She was referred for cardiac cath for risk evaluation prior to orthopedic surgery given her acute infarct. PROCEDURE ACCESS: Right radial artery sheath 6-F slender. DIAGNOSTIC CATHETERS: 5F TIG4, 5FL3.5. She did have proximal right radial artery spasm treated with intra-arterial additional nitroglycerin. MEDICATIONS: 1. Subcu lidocaine. 2. IV Versed. 3. IV fentanyl. 4. Heparin 3000 units. 5. Verapamil 3 mg. 6. Nitroglycerin 300 mcg, 200 mcg IA. HEMODYNAMICS: Initial BP 121/57. LV gram was not performed. ANGIOGRAPHY: There is a proximal right radial spasm which was easily traversed with a Wholey wire. RCA: The RCA is moderate, dominant with a moderate PDA and posterolateral, the proximal RCA has a sh ort 80% slit-like stenosis. Left Main: The left main has ostial taper, there was dampening with engagement. It has a proximal 75 % stenosis. LAD: The LAD is calcified, is moderate, is occluded after the first septal with probably a micro ana nnel and distal JONATHAN-1 flow. Circumflex: The circumflex is large, not dominant, tortuous, it has a single large marginal branch s upplying the obtuse margin, it has a proximal 80% stenosis. CONCLUSION: 1. Significant left main and three-vessel coronary artery disease. 2. Successful right radial artery access. 3. Severe LV systolic dysfunction with very small troponin rise suggestive of large amount of stunne d myocardium. [id number]/[facility] #: [id number]
--- NOTE | 2017-04-01 16:43 | TRS ---
CC: Dr. Moose Ashraf; Dr. Miguel Florence; Dr. Micah Jara* DATE OF ADMISSION: 03/30/2017. DATE OF TRANSFER: 04/01/2017. PRIMARY CARE PHYSICIAN: The patient has no primary care provider. MY ATTENDING PHYSICIAN WHILE IN THE HOSPITAL: Dr. Alejandro Mabry* (dictated by HANNA Thomson). CONSULTING GAMBRELER HELPER: Dr. Moose Ashraf. CONSULTING PARTS PERSON: Dr. Miguel Florence. PARTS PERSON AT THE ACCEPTING FACILITY: Dr. Micah Jara. PRINCIPAL TRANSFER DIAGNOSES: Coronary artery disease with left main and three vessel disease, mildly impacted left femoral neck fracture, Takotsubo cardiomyopathy, [id number] elevation myocardial infarction. SECONDARY DISCHARGE DIAGNOSES: Hypertension, macular degeneration, osteoarthritis. STUDIES DONE WHILE IN THE HOSPITAL: 1. Electrocardiogram from 03/30/2017, read as: Normal sinus rhythm, left axis deviation, wandering baseline T-wave inversions in V2, V3, V4, V5, V6, no other ST segment changes. No other abnormalities. 2. Brain CT from 03/30/2017, read as: There is no evidence of intracranial mass or hemorrhage present. 3. Cervical spine CT from 03/30/2017, read as: No evidence for fracture. Right thyroid lobe nodule. Recommend a follow-up thyroid ultrasound for further evaluation. 4. Chest x-ray from 03/30/2017, read as: Elevated right hemidiaphragm. Poor inspiration. No definite pneumonia is noted. 5. Femur x-ray from 03/30/2017, read as: Impacted fracture of the left femoral neck. 6. Pelvis x-ray from 03/30/2017, read as: Impacted fracture of the left femoral neck. Pelvic ring intact. 7. Shoulder x-ray from 03/30/2017, read as: AC joint arthritis. No fracture of the right shoulder is noted. 8. Pelvis CT from 03/30/2017, read as: Mildly impacted fracture of the neck of the left femur. The pelvic ring demonstrates no fracture. Osteitis pubis is noted. Degenerative changes of the lower lumbar spine are noted. There is a large left inguinal hernia containing colon and a small periumbilical hernia containing omentum. 9. Transthoracic echocardiogram from 03/30/2017, read as: Mild concentric left ventricular hypertrophy. Mild to moderately decreased left ventricular systolic function. The estimated ejection fraction is 35 to 40 percent. Consistent with Takotsubo or broken heart syndrome. Mid anterior, mid anterolateral, mid inferoseptal, apical septal, apical anterior, apical lateral , and apical inferior wall segments are hypokinetic (score 2). The right ventricular global systolic function is normal. There is moderate aortic regurgitation. There is a trace of mitral regurgitation. There is mild tricuspid regurgitation. The right ventricular systolic pressure is estimated at 28 mmHg. There is no significant pericardial effusion. 10. Carotid Doppler study from 03/31/2017, read as: Less than 50 percent stenosis of the right internal carotid artery. Greater than 70l percent stenosis of left internal carotid artery. Incidentally noted are multiple right -sided thyroid nodules. 11. Cardiac catheterization from 03/31/2017, read as: Significant left main and three-vessel coronary artery disease. Successful right radial artery access. Severe left ventricular systolic dysfunction with very small troponin rise suggestive of a large amount of stunned myocardium. 12. Duplex scan lower extremity artery from 04/01/2017, read as: Patent common iliac artery, external iliac artery and common femoral artery bilaterally. The right femoral artery is occluded just distal to the bifurcation of the common femoral artery with reconstitution of the distal right popliteal artery. MEDICATIONS AT TRANSFER: 1. Tylenol 650 mg p.o. q.4 hours as needed. 2. Maalox 30 ml p.o. q.6 hours as needed. 3. Albuterol 2.5 mg inhalation q.4 hours as needed for shortness of breath or wheezing. 4. Aspirin 81 mg p.o. daily. 5. Docusate 200 mg p.o. daily. 6. Lovenox 40 mg p.o. subcutaneous q.24 hours. 7. Lisinopril 5 mg p.o. daily. 8. Metoprolol 25 mg p.o. q.8 hours. 9. Morphine 2 mg IV q.4 hours as needed for pain. 10. Polyethylene Glycol 17 gm p.o. daily as needed. HOME MEDICATIONS: 1. Aspirin 81 mg daily. 2. Hydrochlorothiazide 12.5 mg daily. HOSPITAL COURSE: This is a brief summary of the patient's presentation. For more details, please see the history and physical from Dr. Evita Zepeda on . In brief, the patient is an 86-year-old female with a past medical history significant only for hypertension, macular degeneration, and osteoarthritis who woke up at 2:00 a.m. on 03/30/2017 and was walking from her bed to the bathroom and suddenly lost consciousness and fell backgrounds and to the left. She hit the side of her head and her left hip. The patient denied prodromal symptoms. The patient states that she had been dizzy daily for the past few years and that she had an episode about 15 years ago where she passed out without any prodromal symptoms as well. The patient had significant pain in her hip when she woke up after she fell. She was able to pull a cord and call for help, and EMS was activated. The patient also had syncope on exertion three times in the past few years. The patient does not know how long she was unconscious. The patient denies any other recent illnesses, chest pain, or associated symptoms with this episode. The patient was found in the emergency department to have a minimally impacted left femoral neck fracture as above. The patient was admitted to the hospital. The patient also had an echocardiogram showing possible ischemic changes as above. The patient was admitted to the hospital for concern of syncope related to cardiac issues and the patient had a troponin which was 0.2 and trended up and then down at 0.62, 0.84, 0.93, 0.79, 0.69, and 0.47. The patient's laboratory data was otherwise unremarkable, except for a BNP of 292, magnesium of 1.7, potassium of 3.4, LDL cholesterol of 93, HDL cholesterol of 42.6, TSH of 2.28; trace leukocyte esterase and 1+ white blood cells in the urine; negative influenza A and B. The patient was seen in consultation by HANNA Pringle of Orthopedics and Dr. Moose Ashraf of Cardiology. The patient had a transthoracic echocardiogram as read above and was diagnosed with Takotsubo cardiopathy. The patient's left femoral fracture was deemed amenable to percutaneous pinning, but the patient was not deemed a good surgical candidate due to her cardiac condition. The patient had a carotid Doppler study due to a carotid bruit heard on her left side which was read as above. The patient was taken for a cardiac catheterization in the morning of 01/28/2018 which was read as above. The patient was seen in consultation by Dr. Miguel Florence of Interventional Cardiology and he discussed with them the risks and benefits of the various options available to them, including no treatment, treatment with percutaneous coronary intervention and CABG with subsequent hip surgery to all of these. The patient opted for the CABG procedure which is not available at this institution. The patient was amenable to transfer to [facility] for treatment of this condition. Incidentally, while the patient was in the hospital, she was found to have coughing with swallowing of thin liquids. A swallow study was performed and she was put on a mechanical ground, nectar- thickened. The patient stated that she frequently had foods get stuck in her throat which she had to dislodge with her finger. The patient also has difficulty with chewing due to her edentulous state. The patient had no follow- up imaging to further elucidate this condition. The patient has no history of cerebral vascular accident to her knowledge. The patient was also constipated while in the hospital and was given Colace and MiraLax without a bowel movement at the time of this dictation. The patient is stable without chest pain at the time of this dictation. PHYSICAL EXAMINATION ON THE DAY OF DISCHARGE: General: The patient is an 86- year-old female with bilateral ectropion who appears stated age and is sitting comfortably in bed in no acute distress. Vital signs at the time of dictation: Temperature 96.7, pulse rate 65, respiratory rate 16, oxygen saturation 98 percent, blood pressure 94/42, previous blood pressure 132/48 four hours earlier. HEENT: Head normocephalic, atraumatic. Sclerae anicteric. No conjunctival injection. Ectropion, and bilateral extremities without other abnormalities. Nasal mucosa is moist. Oral mucosa is moist. No pharyngeal erythema, discharge or exudate. Neck: Supple, nontender, no lymphadenopathy. Significant left carotid bruit auscultated. Cardiac: Regular rate and rhythm. No murmurs. S3 present. Respiratory: Clear to auscultation bilaterally. No wheezes, rales or rhonchi. Good air exchange bilaterally. Abdomen: Soft, nontender, nondistended. Bowel sounds are present. Normoactive in all four quadrants. No hepatosplenomegaly or abdominal bruits auscultated. Genitourinary: No suprapubic or CVA tenderness. Skin: The patient has a very significant burden of actinic keratosis with no signs of ulceration or skin cancer. Neuro: Cranial nerves II through XII intact. Strength 5/5 in bilateral and lower extremities distally and proximally. No other focal deficits. Reflexes 2+ in the bilateral biceps, patellar, and Achilles areas. Babinski's downgoing bilaterally. Psychiatric: Very pleasant, cooperative. LABORATORY DATA ON THE DATE OF DISCHARGE: White blood cell count 9.0, hemoglobin 13.5, hematocrit 40, platelet 153; INR 1.06; sodium 139, potassium 4.3, chloride 103, carbon dioxide 30, anion gap 6, BUN 19, creatinine 0.62, glucose 108, calcium 9.1. TRANSFER PLAN: The patient will be transferred to [facility] to the Medical Service with Interventional Cardiology consulting with a planned procedure for coronary artery bypass graft for her extensive coronary artery disease. The patient will then have subsequent fixation of her left femoral fracture at this new facility at the discretion of their orthopedic team. The patient is currently stable. The patient's medications in the hospital were as above. The patient has adequate pain control with this regimen. The patient's vital signs are stable. The patient shows no sign of active infection. The patient and her family were briefed by the church worker on the risks and benefits of different treatment options and the patient and family elected for transfer for CABG. The patient is on bedrest. The patient should have a heart- healthy diet without caffeine with mechanical ground solid and nectar-thickened liquids. TIME SPENT: Approximately 60 minutes were spent on this transfer, 30 of which were spent [id number] with the patient obtaining history and physical and discussing treatment plan. HANNA THOMSON [id number]/[facility] #: [id number] REYNALDO
[2017-04-01 17:11] VITALS: BP 117/47
== END 2017-04-01 18:07 | disposition short-term general hospital (02) | DRG 280 ==
LOC: EDBD → ED 03:19 → MEDTELE 07:36
PROVIDERS: ADMIT Internal Medicine; ATTEND Internal Medicine
PROC: B2111ZZ Fluoroscopy of Multiple Coronary Arteries using Low Osmolar Contrast (ICD-10-PCS; 2017-03-31)
PROC: 4A023N7 Measurement of Cardiac Sampling and Pressure, Left Heart, Percutaneous Approach (ICD-10-PCS; principal; 2017-03-31 12:15)
DX: I21.4 Non-ST elevation (NSTEMI) myocardial infarction (principal); S72.012A Unspecified intracapsular fracture of left femur, initial encounter for closed fracture; E83.42 Hypomagnesemia; I51.81 Takotsubo syndrome; I08.3 Combined rheumatic disorders of mitral, aortic and tricuspid valves; I65.23 Occlusion and stenosis of bilateral carotid arteries; H35.30 Unspecified macular degeneration; S01.81XA Laceration without foreign body of other part of head, initial encounter; E87.6 Hypokalemia; I10 Essential (primary) hypertension; W19.XXXA Unspecified fall, initial encounter; Y93.01 Activity, walking, marching and hiking; I25.10 Atherosclerotic heart disease of native coronary artery without angina pectoris; E04.1 Nontoxic single thyroid nodule; M13.812 Other specified arthritis, left shoulder; M13.811 Other specified arthritis, right shoulder; K40.90 Unilateral inguinal hernia, without obstruction or gangrene, not specified as recurrent; K42.9 Umbilical hernia without obstruction or gangrene; Z82.49 Family history of ischemic heart disease and other diseases of the circulatory system; Z87.891 Personal history of nicotine dependence; Y92.091 Bathroom in other non-institutional residence as the place of occurrence of the external cause
CPT/HCPCS: 36415; 70450; 71045; 72125; 72170; 72192; 80048; 80053; 80061; 81003; 81015; 83605; 83735; 83880; 84443; 84484; 85025; 85610; 85730; 86850; 86900; 86901; 87086; 87502; 93005; 93306; 93454; 93880; 93925; 99156; 99157; 99283; A9270-GY; J1644; J1650; J2250; J2270; J2405; J3010